=== PATIENT | female | born 1945 | race Two or more races ===

== ENCOUNTER → 2018-02-23 | Outpatient (CLI) | payer OTHER ==
[~2018-02-23] MED LIST: ASPI81CH43 PO
[2018-02-23 12:19] LABS: Free T4 (Free Thyroxine) 0.95 ng/dL (0.89-1.76)
[2018-02-23 12:20] LABS: Folate (Folic Acid) 15.97 ng/mL (5.38-24)
[2018-02-23 12:25] LABS: Albumin 3.7 g/dL (3.4-5.0); BUN/Creatinine Ratio 21.2; Bilirubin, Total 0.3 mg/dL (0.2-1.0); Calcium 9.6 mg/dL (8.5-10.1); Potassium 4.4 mmol/L (3.5-5.1); Total Protein 7.7 g/dL (6.4-8.2)
[2018-02-24 05:05] LABS: RPR Non Reactive (Non Reactive)
== END | disposition home or self-care (01) ==
LOC: LAB 10:24
PROVIDERS: ATTEND Internal Medicine
DX: R41.3 Other amnesia (principal); D64.9 Anemia, unspecified; I70.90 Unspecified atherosclerosis
CPT/HCPCS: 36415; 80053; 80061; 82607; 82746; 83540; 83615; 84439; 84443; 86592

== ENCOUNTER → 2018-03-02 | Outpatient (CLI) | payer OTHER | END | disposition home or self-care (01) | LOC: LAB 11:38 | PROVIDERS: ATTEND Internal Medicine | DX: R41.3 Other amnesia (principal); D64.9 Anemia, unspecified; Z88.0 Allergy status to penicillin | CPT/HCPCS: 82270 ==